=== PATIENT | female | born 1960 | race African-American/Black ===

== ENCOUNTER 2019-01-23 04:18 | Inpatient (IN) | payer MEDICAID ==
[~2019-01-23] VITALS: Ht 152.4 cm; Wt 62.2 kg
[2019-01-23] MEDS ORDERED: METHYLPREDNISOLONE SOD SUCC 125 MG/2 ML VIAL IV STA (06:39)
[2019-01-23] MEDS ORDERED: IPRATROPIUM/ALBUTEROL 0.5-3(2.5)MG/3ML NEB HHN ONE (06:45)
[2019-01-23] MEDS ORDERED: NITROGLYCERIN OINT 1GM/INCH UDPKT TD ONE (06:45)
[2019-01-23] MEDS ORDERED: FUROSEMIDE 40MG/4ML VIAL IV ONE (06:45)
[2019-01-23 08:02] LABS: CLARITY URINE CLEAR (CLEAR); COLOR URINE YELLOW (YELLOW); KETONES URINE NEGATIVE (NEGATIVE); LEUKOCYTE ESTERASE URINE NEGATIVE (NEGATIVE); NITRITE URINE NEGATIVE (NEGATIVE); OCCULT BLOOD URINE NEGATIVE (NEGATIVE); PH URINE 6.5 (4.5-8.0); PROTEIN URINE NEGATIVE (NEGATIVE); SPECIFIC GRAVITY URINE 1.009 (1.005-1.030)
[2019-01-23 09:12] LABS: EOSINOPHILS % 0.3 % (0.0-5.0); HEMATOCRIT. 48.1 % (36.0-48.0); HEMOGLOBIN. 16.7 g/dL (12.0-16.0); LYMPHOCYTES % 24.8 % (20.0-50.0); MEAN CORPUSCULAR HEMOGLOBIN 31.1 pg (28.0-32.0); MEAN CORPUSCULAR VOLUME 89.5 fL (81.0-99.0); MEAN PLATELET VOLUME 10.2 fl (7.4-10.4); MONOCYTES % 4.3 % (2.0-8.0); NEUTROPHILS % 69.6 % (40.0-76.0); PLATELET 184 x1000/uL (130-400); RED BLOOD CELL COUNT 5.38 mill/uL (4.2-5.4); RED CELL DISTRIBUTION WIDTH 13.4 % (11.6-14.6)
[2019-01-23 09:19] LABS: CHLORIDE 111 mEq/L (98-107)
[2019-01-23 09:21] LABS: D-DIMER 0.28 mg/L FEU (<0.50); PARTIAL THROMBOPLASTIN TIME 26.2 sec (23.4-31.0); PROTHROMBIN TIME 10.7 sec (9.6-11.0)
[2019-01-23 12:00] VITALS: BP 97/58
[2019-01-23 12:03] VITALS: BP 97/58
[2019-01-23] MEDS ORDERED: LOSA100T32 MT (12:34)
[2019-01-23] MEDS ORDERED: ALBU90AE INH (12:34)
[2019-01-23] MEDS ORDERED: ATOR20TA65 MT (12:34)
[2019-01-23] MEDS ORDERED: SPIR25TA6 MT (12:34)
[2019-01-23] MEDS ORDERED: CYCL10TA7 MT (12:34)
[2019-01-23] MEDS ORDERED: GLIP10TA10 MT (12:34)
[2019-01-23] MEDS ORDERED: METO200T48 MT (12:34)
[2019-01-23] MEDS ORDERED: GABA-531 MT (12:34)
[2019-01-23] MEDS ORDERED: AMIT-188 MT (12:34)
[2019-01-23] MEDS ORDERED: PANT40TA4 MT (12:34)
[2019-01-23] MEDS ORDERED: AMLO5TAB88 MT (12:34)
[2019-01-23] MEDS ORDERED: FURO-151 MT (12:34)
[2019-01-23] MEDS ORDERED: INSU100I24 SQ (12:34)
[2019-01-23] MEDS ORDERED: DEXTROSE 50% WATER 50ML SYRINGE IV PRN ×2 (13:00→17:45)
[2019-01-23 14:14] LABS: *BARBITURATES SCREEN URINE NEGATIVE (NEGATIVE); *BENZODIAZEPINES SCREEN URINE NEGATIVE (NEGATIVE); *COCAINE SCREEN URINE NEGATIVE (NEGATIVE); CANNABINOID URINE SCREEN NEGATIVE (NEGATIVE); METHADONE URINE SCREEN NEGATIVE (NEGATIVE); OPIATES URINE SCREEN NEGATIVE (NEGATIVE); PHENCYCLIDINE URINE SCREEN NEGATIVE (NEGATIVE)
[2019-01-23 14:15] LABS: *AMPHETAMINES SCREEN URINE NEGATIVE (NEGATIVE)
[2019-01-23 16:00] VITALS: BP_SYST 102; BP_SYST 94; BP_SYST 96; BP_DIAS 60; BP_DIAS 62; BP_DIAS 65
[2019-01-23] MEDS ORDERED: DOCUSATE SODIUM 100MG CAPSULE PO PRN (16:15)
[2019-01-23] MEDS ORDERED: CLONIDINE 0.1MG TABLET PO PRN (16:15)
[2019-01-23] MEDS ORDERED: ACETAMINOPHEN 325MG TABLET PO PRN (16:15)
[2019-01-23] MEDS ORDERED: HYDROCODONE/ACETAMINOPHEN 5/325MG TABLET PO PRN (16:15)
[2019-01-23] MEDS ORDERED: ONDANSETRON HCL 4MG/2ML INJ IV PRN (16:15)
[2019-01-23] MEDS ORDERED: MAGNESIUM/ALUMINUM HYDROXIDE/SIMETHICONE 30ML UDC PO PRN (16:15)
[2019-01-23 16:16] LABS: BASOPHILS % 0.2 % (0.0-2.0); HEMATOCRIT. 44.9 % (36.0-48.0); HEMOGLOBIN. 15.4 g/dL (12.0-16.0); LYMPHOCYTES % 14.7 % (20.0-50.0); MEAN CORPUSCULAR HEMOGLOBIN 30.3 pg (28.0-32.0); MEAN CORPUSCULAR VOLUME 88.3 fL (81.0-99.0); MEAN PLATELET VOLUME 10.3 fl (7.4-10.4); MONOCYTES % 0.8 % (2.0-8.0); NEUTROPHILS % 84.3 % (40.0-76.0); PLATELET 178 x1000/uL (130-400); RED BLOOD CELL COUNT 5.08 mill/uL (4.2-5.4); RED CELL DISTRIBUTION WIDTH 13.5 % (11.6-14.6)
[2019-01-23 16:27] LABS: CHLORIDE 108 mEq/L (98-107)
[2019-01-23] MEDS: BLOOD SUGAR DIAGNOSTIC STRIP TEST SCH ×2 (17:13→20:37)
[2019-01-23] MEDS: ENOXAPARIN 40MG/0.4ML SYR SUBCUT SCH (17:15)
[2019-01-23] MEDS: INSULIN LISPRO 100 UNITS/ML SUBCUT SCH ×2 (17:57→20:48)
[2019-01-23] MEDS ORDERED: INSULIN LISPRO 100 UNITS/ML SUBCUT SCH ×3 (18:00→21:00)
[2019-01-23 20:41] VITALS: BP_SYST 107; BP_SYST 118; BP_DIAS 65; BP_DIAS 66
[2019-01-23] MEDS: CARVEDILOL 3.125 MG TABLET PO SCH (20:46)
[2019-01-23] MEDS ORDERED: GLIPIZIDE 10MG TABLET PO SCH (21:00)
[2019-01-23] MEDS ORDERED: ATORVASTATIN CALCIUM 20MG TABLET PO SCH (21:00)
[2019-01-23] MEDS ORDERED: GABAPENTIN 300MG CAPSULE PO PRN (21:00)
[2019-01-23] MEDS ORDERED: BLOOD SUGAR DIAGNOSTIC STRIP TEST SCH (21:00)
[2019-01-23] MEDS ORDERED: INSULIN GLARGINE UD 100 UNITS/ML SYR SUBCUT SCH (22:00)
[2019-01-24] VITALS: BP 120/64
[2019-01-24 04:00] VITALS: BP 115/75
[2019-01-24] MEDS: BLOOD SUGAR DIAGNOSTIC STRIP TEST SCH ×3 (06:07→16:45)
[2019-01-24] MEDS: INSULIN LISPRO 100 UNITS/ML SUBCUT SCH ×3 (06:17→17:08)
[2019-01-24 08:00] VITALS: BP_SYST 107; BP_SYST 112; BP_SYST 113; BP_DIAS 68; BP_DIAS 69; BP_DIAS 74
[2019-01-24 08:11] LABS: BASOPHILS % 0.1 % (0.0-2.0); HEMATOCRIT. 44.2 % (36.0-48.0); LYMPHOCYTES % 14.7 % (20.0-50.0); MEAN CORPUSCULAR HEMOGLOBIN 30.1 pg (28.0-32.0); MEAN CORPUSCULAR VOLUME 88.8 fL (81.0-99.0); MONOCYTES % 6.2 % (2.0-8.0); PLATELET 183 x1000/uL (130-400); RED BLOOD CELL COUNT 4.97 mill/uL (4.2-5.4); RED CELL DISTRIBUTION WIDTH 13.5 % (11.6-14.6)
[2019-01-24] MEDS ORDERED: SPIRONOLACTONE 25MG TABLET PO SCH (09:00)
[2019-01-24] MEDS ORDERED: FUROSEMIDE 20MG TABLET PO SCH (09:00)
[2019-01-24] MEDS: CARVEDILOL 3.125 MG TABLET PO SCH (09:22)
[2019-01-24 09:39] LABS: CHLORIDE 110 mEq/L (98-107)
[2019-01-24 09:48] LABS: PHOSPHORUS 4.2 mg/dL (2.5-4.9)
[2019-01-24 09:49] LABS: LDL CHOLESTEROL 75 mg/dL (5-100)
[2019-01-24 09:52] LABS: HDL CHOLESTEROL 50 mg/dL (40-59)
[2019-01-24 12:00] VITALS: BP 104/63
[2019-01-24] MEDS: ENOXAPARIN 40MG/0.4ML SYR SUBCUT SCH (13:12)
== END 2019-01-24 17:42 | disposition left against medical advice (07) | DRG 133 ==
LOC: ER 04:18 → 5WST 10:25 → EDBEDREQ 10:27 → EDBEDREQTM 10:27 → ENRESERV 10:42
PROVIDERS: ADMIT Family Medicine Adult Medicine; ATTEND Family Medicine Adult Medicine
DX: J96.00 Acute respiratory failure, unspecified whether with hypoxia or hypercapnia (principal); I50.21 Acute systolic (congestive) heart failure; E11.40 Type 2 diabetes mellitus with diabetic neuropathy, unspecified; I42.0 Dilated cardiomyopathy; I11.0 Hypertensive heart disease with heart failure; D72.829 Elevated white blood cell count, unspecified; Z53.21 Procedure and treatment not carried out due to patient leaving prior to being seen by health care provider; E78.5 Hyperlipidemia, unspecified; F17.210 Nicotine dependence, cigarettes, uncomplicated; J44.9 Chronic obstructive pulmonary disease, unspecified; Z79.4 Long term (current) use of insulin; Z82.49 Family history of ischemic heart disease and other diseases of the circulatory system; Z90.710 Acquired absence of both cervix and uterus; Z95.810 Presence of automatic (implantable) cardiac defibrillator; Z88.1 Allergy status to other antibiotic agents; Z88.8 Allergy status to other drugs, medicaments and biological substances; Z79.84 Long term (current) use of oral hypoglycemic drugs
CPT/HCPCS: 36415; 71045; 80048; 80061; 80305; 82962; 83735; 83880; 84100; 84443; 84484; 85379; 93005; 93306; 93970; 94640; 96374; 96375; 99285; J1650; J1815; J1940; J2930; J7620